=== PATIENT | male | born 1970 | race Caucasian/White ===

== ENCOUNTER 2017-06-15 06:15 | Emergency (ER) | payer SELFPAY ==
[~2017-06-15] VITALS: Ht 175.3 cm; Wt 90.7 kg
[~2017-06-15 06:15] MED LIST: ACHD5005 PO; ASP81CT PO; B/P med; CETI10CA PO; CPR500T PO; DIPH25CA79 PO; EPIN0.3P3 IJ; LISI5TAB PO; METF1000 PO; METF500T PO; MONT10TA21 PO; PRD20T PO
[2017-06-15] MEDS ORDERED: ASPIRIN 81 MG CHEW (CHILDREN'S ASA) PO ONE (06:30)
[2017-06-15] MEDS ORDERED: FAMOTIDINE 20MG/2ML IV (PEPCID) IVP ONE (06:30)
[2017-06-15] MEDS ORDERED: ANTACID SUSP 30 ML UDC (MYLANTA) PO ONE (06:30)
[2017-06-15] MEDS ORDERED: LIDOCAINE 2% VISCOUS 15 ML UDC PO ONE (06:30)
[2017-06-15 06:42] LABS: BASOPHILS # (AUTO) 0.1 10^3/uL (0.0-0.1); BASOPHILS % (AUTO) 1 % (0-10); EOSINOPHILS # (AUTO) 0.8 10^3/uL (0.0-0.3); EOSINOPHILS % (AUTO) 6 % (0-10); LYMPHOCYTES # (AUTO) 3.2 X 10^3 (1.0-4.0); LYMPHOCYTES % (AUTO) 24 % (12-44); MEAN CORPUSCULAR HEMOGLOBIN 29 PG (25-34); MEAN CORPUSCULAR HGB CONC 34 G/DL (32-36); MEAN CORPUSCULAR VOLUME 86 FL (80-99); MEAN PLATELET VOLUME 10.7 FL (7.4-10.4); MONOCYTES % (AUTO) 8 % (0-12); NEUTROPHILS # (AUTO) 7.9 X 10^3 (1.8-7.8); NEUTROPHILS % (AUTO) 61 % (42-75); PLATELET COUNT 197 10^3/uL (130-400); RED CELL DISTRIBUTION WIDTH 12.9 % (10.0-14.5); WHITE BLOOD COUNT 12.9 10^3/uL (4.3-11.0)
--- NOTE | 2017-06-15 06:44 | ED Chest Pain ---
General Chief Complaint: Cardiac/General Problems Stated Complaint: HEARTBURN Nursing Triage Note: AMB TO ED BEFORE GOING TO WORK TO REPORT INDIGESTION SINCE 2300 LAST NIGHT. PT HAS NOT TAKEN ANY MEDICATIONS. "BURNING SENSATION." PT IS DIABETIC. Nursing Sepsis Screen: No Definite Risk Source: patient Exam Limitations: no limitations History of Present Illness Time seen by provider: 06:17 Initial Comments This 46-year-old gentleman presents to the emergency room with complaints of "heartburn" since 23:00. He had a similar pain about 3 weeks ago that lasted for 3 days and seemed refractory to gbqh-kzf-rxicalh treatments for heartburn. The features of his pain are mixed. He reports the pain is sometimes worse with eating or drinking. It also seems worse with exertion and inspiration. He occasionally has some shortness of air with that. He has associated nausea. Pain radiates up to the upper chest and into the left arm. He has cardiac risk factors including diabetes and tobaccoism. He rates the pain as 7/10. Allergies and Home Medications Allergies Coded Allergies: No Known Drug Allergies (Unverified , 11/06/11) Home Medications Cetirizine HCl 10 Mg Capsule, 10 MG PO DAILY, #30 Prescribed by: QAMAR RENDON on 06/26/15 1128 Epinephrine 0.3 Mg/0.3 Ml Auto.injct, 0.3 MG IJ UD PRN for ALLERGIC REACTION, ( Reported) Glipizide 10 Mg Tablet, 10 MG PO BID, (Reported) Metformin HCl 1,000 Mg Tablet, 1,000 MG PO BID for 30 Days May restart on AM after 10:00 AM. Prescribed by: QAMAR RENDON on 06/26/15 1128 Montelukast Sodium 10 Mg Tablet, 10 MG PO DAILY for 30 Days Prescribed by: QAMAR RENDON on 06/26/15 1128 Review of Systems Constitutional: no symptoms reported EENTM: No Symptoms Reported Respiratory: See HPI Cardiovascular: See HPI Gastrointestinal: See HPI Genitourinary: No Symptoms Reported Musculoskeletal: no symptoms reported Skin: no symptoms reported Psychiatric/Neurological: No Symptoms Reported Endocrine: No Symptoms Reported Hematologic/Lymphatic: No Symptoms Reported Past Hehdtwj-Lfytqb-Cphwbv Hx Patient Social History Alcohol Use: Rarely Uses Recreational Drug Use: No Smoking Status: Current Everyday Smoker Type Used: Cigarettes Recent Foreign Travel: No Contact w/Someone Who Travel: No Recent Infectious Disease Expo: No Recent Hopitalizations: No Immunizations Up To Date Date of Pneumonia Vaccine: Sep 07, 2008 Date of Influenza Vaccine: Jun 08, 2011 Seasonal Allergies Seasonal Allergies: No Surgeries History of Surgeries: Yes (hernia repairs X 3) Surgeries: Abdominal Respiratory History of Respiratory Disorde: No Currently Using CPAP: No Currently Using BIPAP: No Cardiovascular History of Cardiac Disorders: Yes (ECHO, STRESS, CATHERIZATION IN 1989) Cardiac Disorders: Deep Vein Thrombosis Neurological History of Neurological Disord: No Reproductive System Hx Reproductive Disorders: No Genitourinary History of Genitourinary Disor: Yes Genitourinary Disorders: Kidney Stones Gastrointestinal History of Gastrointestinal Di: Yes (ING HERNIA REPAIR) Gastrointestinal Disorders: Abdominal Hernia Musculoskeletal History of Musculoskeletal Dis: No Endocrine History of Endocrine Disorders: Yes (DM TYPE II) Endocrine Disorders: Diabetes, Non-Insulin dep HEENT History of HEENT Disorders: No Loss of Vision: Denies Hearing Impairment: Denies Cancer History of Cancer: No Psychosocial History of Psychiatric Problem: No Integumentary History of Skin or Integumenta: Yes (HX Hives, allergic reaction 06/25/15 unsure to what) Blood Transfusions History of Blood Disorders: Yes (REPORTS HEMATOMA TO LEFT LEG WHEN 16 IN AFTER HARD TACKLE IN FOOTBALL) Adverse Reaction to a Blood Tr: No Family Medical History Significant Family History: CAD Under 55 Years Old, Diabetes, Hypertension Family Medial History: Cardiovascular disease 19 MOTHER Diabetes mellitus 19 MOTHER Hypertension 19 MOTHER Physical Exam Vital Signs Vital Sign - Last 12Hours 06/15/17 06:19 Temp 98.3 Pulse 87 Resp 20 B/P (MAP) 157/110 Pulse Ox 97 O2 Delivery Room Air Capillary Refill : Less Than 3 Seconds General Appearance: No Apparent Distress, WD/WN HEENT: PERRL/EOMI, Normal ENT Inspection Neck: Normal Inspection Respiratory: Lungs Clear, Normal Breath Sounds, No Accessory Muscle Use, No Respiratory Distress, Other (anterior chest wall is tender to palpation) Cardiovascular: Regular Rate, Rhythm, No Edema, No Murmur Gastrointestinal: Normal Bowel Sounds, Non Tender, Soft Extremity: Normal Inspection, Non Tender, No Calf Tenderness, No Pedal Edema, Other (negative Lionel) Neurologic/Psychiatric: Alert, Oriented x3, No Motor/Sensory Deficits, Normal Mood/Affect Skin: Normal Color, Warm/Dry Progress/Results/Core Measures Results/Orders Lab Results Laboratory Tests Test 06/15/17 06:30 06/15/17 10:29 Range/Units White Blood Count 12.9 H 4.3-11.0 10^3/uL Red Blood Count 5.50 4.35-5.85 10^6/uL Hemoglobin 16.1 13.3-17.7 G/DL Hematocrit 47 40-54 % Mean Corpuscular Volume 86 80-99 FL Mean Corpuscular Hemoglobin 29 25-34 PG Mean Corpuscular Hemoglobin Concent 34 32-36 G/DL Red Cell Distribution Width 12.9 10.0-14.5 % Platelet Count 197 130-400 10^3/uL Mean Platelet Volume 10.7 H 7.4-10.4 FL Neutrophils (%) (Auto) 61 42-75 % Lymphocytes (%) (Auto) 24 12-44 % Monocytes (%) (Auto) 8 0-12 % Eosinophils (%) (Auto) 6 0-10 % Basophils (%) (Auto) 1 0-10 % Neutrophils # (Auto) 7.9 H 1.8-7.8 X 10^3 Lymphocytes # (Auto) 3.2 1.0-4.0 X 10^3 Monocytes # (Auto) 1.0 0.0-1.0 X 10^3 Eosinophils # (Auto) 0.8 H 0.0-0.3 10^3/uL Basophils # (Auto) 0.1 0.0-0.1 10^3/uL Prothrombin Time 11.2 L 12.2-14.7 SEC INR Comment 0.8 0.8-1.4 Activated Partial Thromboplast Time 25 24-35 SEC D-Dimer 0.34 0.00-0.49 UG/ML Sodium Level 137 135-145 MMOL/L Potassium Level 4.5 3.6-5.0 MMOL/L Chloride Level 109 H 98-107 MMOL/L Carbon Dioxide Level 21 21-32 MMOL/L Anion Gap 7 5-14 MMOL/L Blood Urea Nitrogen 15 7-18 MG/DL Creatinine 0.82 0.60-1.30 MG/DL Estimat Glomerular Filtration Rate > 60 BUN/Creatinine Ratio 18 Glucose Level 133 H 70-105 MG/DL Calcium Level 9.4 8.5-10.1 MG/DL Magnesium Level 1.8 1.8-2.4 MG/DL Total Bilirubin 0.5 0.1-1.0 MG/DL Aspartate Amino Transf (AST/SGOT) 16 5-34 U/L Alanine Aminotransferase (ALT/SGPT) 44 0-55 U/L Alkaline Phosphatase 66 40-136 U/L Myoglobin 30.6 10.0-92.0 NG/ML Troponin I < 0.30 < 0.30 <0.30 NG/ML Total Protein 6.8 6.4-8.2 GM/DL Albumin 4.1 3.2-4.5 GM/DL Lipase 48 8-78 U/L My Orders Orders - COURTNEY PADILLA MD Cbc With Automated Diff (06/15/17 06:27) Magnesium (06/15/17 06:27) Chest 1 View, Ap/Pa Only (06/15/17:27) Ekg Tracing (06/15/17 06:27) Cardiac Profile 1 (06/15/17 06:27) Comprehensive Metabolic Panel (06/15/17 06:27) Myoglobin Serum (06/15/17:27) Protime With Inr (06/15/17 06:27) Partial Thromboplastin Time (06/15/17 06:27) O2 (06/15/17 06:27) Monitor-Rhythm Ecg Trace Only (06/15/17:27) Lipid Panel (06/16/17 06:00) Aspirin Chewable Tablet (Baby Aspirin Ch (06/15/17 06:30) Saline Lock/Iv-Start (06/15/17 06:27) Lipase (06/15/17 06:27) Famotidine Injection (Pepcid Injection) (06/15/17 06:30) Lidocaine 2% Viscous 15 Ml (Xylocaine Vi (06/15/17 06:30) Antacid Suspension (Mylanta Suspension (06/15/17 06:30) Fibrin Degradation Products (06/15/17 06:56) Rx-Nitroglycerin Sl Tabs (Rx-Nitrostat S (06/15/17 07:30) Nitroglycerin 0.4 Mg Btl 25's (Nitrostat (06/15/17 07:17) Nitroglycerin 0.4 Mg Btl 25's (Nitrostat (06/15/17 07:30) Troponin I (06/15/17 08:07) Medications Given in ED Current Medications Medications Dose Ordered Sig/Clary Route Start Time Stop Time Status Last Admin Dose Admin Al Hydrox/Mg Hydrox/Simethicone 30 ml ONCE ONCE PO 06/15/17 06:30 06/15/17 06:31 DC 06/15/17 06:41 30 ML Aspirin 324 mg ONCE ONCE PO 06/15/17 06:30 06/15/17 06:31 DC 06/15/17 06:41 324 MG Famotidine 20 mg ONCE ONCE IVP 06/15/17 06:30 06/15/17 06:31 DC 06/15/17 06:41 20 MG Lidocaine HCl 15 ml ONCE ONCE PO 06/15/17 06:30 06/15/17 06:31 DC 06/15/17 06:41 15 ML Nitroglycerin 1 TAB Q 5 MIN X 3 NEEDED PRN SL 06/15/17 07:30 06/15/17 07:28 0.4 MG Vital Signs/I&O Vital Sign - Last 12Hours 06/15/17 06/15/17 06:19 06:41 Temp 98.3 98.3 Pulse 87 Resp 20 B/P (MAP) 157/110 Pulse Ox 97 O2 Delivery Room Air Blood Pressure Mean: 126 Progress Note #1: Time: 06:55 Progress Note Patient received GI cocktail and Pepcid a few minutes ago. So far has not improved his pain. If it does not change his pain soon, then we'll try nitroglycerin. Patient had a cardiac catheterization in June 2015 with clean coronary arteries. Ejection fraction was 50 percent. Report from this catheterization was reviewed. Patient also confirms that he did have a pulmonary embolus when he was a young man of unknown cause. A d-dimer will be added to his workup. Progress Note #2: Time: 07:40 Progress Note GI cocktail and Pepcid had no effect on his chest pain. Nitroglycerin was then administered and dropped his pain from 8/10 down to 4/10. Workup was unremarkable except for mild leukocytosis. Progress Note #3: Time: 08:09 Progress Note Case reviewed with Dr. Rubio. Given the clean cardiac catheterization 2 years ago, he recommends a 4 hour troponin to rule out. If this is normal, patient may be dismissed to outpatient follow-up. Progress Note #4: Time: 11:05 Progress Note Patient's pain resolved and repeat troponin was negative. ECG Initial ECG Impression Date: Jun 15, 2017 Initial ECG Impression Time: 06:26 Initial ECG Rate: 77 Initial ECG Rhythm: Normal Sinus Initial ECG Intervals: Normal Initial ECG Impression: Normal Comment Normal sinus rhythm with no ST elevation or depression. No abnormal intervals or axis deviation. Diagnostic Imaging Diagonstic Imaging: Xray Plain Films/CT/US/NM/MRI: chest Comments Chest x-ray viewed by me and report reviewed. See report below: NAME: PAT DENISE REC#: [id number] PT STATUS: REG ER : 1970 PHYSICIAN: COURTNEY PADILLA MD ADMIT DATE: 06/15/17/ER Signed Date of Exam:06/15/17 CHEST 1 VIEW, AP/PA ONLY INDICATION: Epigastric pain. Comparison made with prior examination 06/25/2015. FINDINGS: The heart size, mediastinal configuration, and pulmonary vascularity are within normal limits. There is no pleural effusion, pneumothorax, or pneumonia. The osseous structures are unremarkable. IMPRESSION: No acute cardiopulmonary abnormality. Dictated by: Dictated on workstation # [id number] Dict: 06/15/17 07 Trans: 06/15/17715 [facility] [id number] Interpreted by: JANE MCBRIDE MD Electronically signed by: JANE MCBRIDE MD 06/15/17715 Departure Impression Impression: Primary Impression: Atypical chest pain Additional Impression: Gastroesophageal reflux disease Qualified Codes: K21.9 - Gastro-esophageal reflux disease without esophagitis Disposition: 01 HOME, SELF-CARE Condition: Improved Departure-Patient Inst. Decision time for Depature: 11:05 Referrals: NINOSKA CARDENAS DO (PCP/Family) Primary Care Physician Patient Instructions: Chest Pain (DC), Acid Reflux (Gastroesophageal Reflux Disease), Adult (DC) Add. Discharge Instructions: The exact cause of your chest pain is uncertain at this time but it may be related to acid reflux. Please take omeprazole as prescribed to reduce acid. Avoid the following: Eating large meals, eating close to bedtime, carbonation, caffeine, chocolate, tobacco, alcohol, mints, spicy foods, fatty or greasy foods , tomato products, citrus fruits and juices, NSAID medications such as ibuprofen or naproxen, or anything else you know irritates your stomach. 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 All discharge instructions reviewed with patient and/or family. Voiced understanding. Scripts Omeprazole (Omeprazole) 20 Mg Capsule. 20 MG PO BID, #60 CAP Prov: COURTNEY PADILLA MD 06/15/17 COURTNEY PADILLA MD Jun 15, 2017 06:44
[2017-06-15] MEDS ORDERED: GLIP10TA13 PO (06:49)
[2017-06-15 06:55] LABS: INR 0.8 (0.8-1.4); PROTHROMBIN TIME PATIENT 11.2 SEC (12.2-14.7)
[2017-06-15 06:58] LABS: ALANINE AMINOTRANSFERASE 44 U/L (0-55); ALBUMIN 4.1 GM/DL (3.2-4.5); ANION GAP 7 MMOL/L (5-14); ASPARTATE AMINO TRANSFERASE 16 U/L (5-34); BILIRUBIN,TOTAL 0.5 MG/DL (0.1-1.0); BLOOD UREA NITROGEN 15 MG/DL (7-18); BUN/CREATININE RATIO 18; CALCIUM 9.4 MG/DL (8.5-10.1); CARBON DIOXIDE 21 MMOL/L (21-32); CHLORIDE 109 MMOL/L (98-107); CREATININE SERUM 0.82 MG/DL (0.60-1.30); GFR ESTIMATED > 60; GLUCOSE 133 MG/DL (70-105); LIPASE 48 U/L (8-78); MAGNESIUM 1.8 MG/DL (1.8-2.4); POTASSIUM 4.5 MMOL/L (3.6-5.0); SODIUM 137 MMOL/L (135-145); TOTAL PROTEIN 6.8 GM/DL (6.4-8.2)
[2017-06-15 07:04] LABS: MYOGLOBIN SERUM 30.6 NG/ML (10.0-92.0)
--- NOTE | 2017-06-15 07:09 | Diagnostic Imaging Report ---
INDICATION: Epigastric pain. Comparison made with prior examination 06/25/2015. FINDINGS: The heart size, mediastinal configuration, and pulmonary vascularity are within normal limits. There is no pleural effusion, pneumothorax, or pneumonia. The osseous structures are unremarkable. IMPRESSION: No acute cardiopulmonary abnormality. Dictated by: Dictated on workstation # [id number]
[2017-06-15] MEDS ORDERED: NITROGLYCERIN 0.4 MG SL TABS BTL 25'S SL ONE (07:17)
[2017-06-15] MEDS ORDERED: RX-NITROGLYCERIN 0.4 MG TAB BTL 25'S SL PRN (07:30)
[2017-06-15] MEDS ORDERED: NITROGLYCERIN 0.4 MG SL TABS BTL 25'S SL PRN (07:30)
[2017-06-15] MEDS ORDERED: OMEP20CA12 PO (11:15)
[2017-06-15 11:23] VITALS: BP 157/110
== END 2017-06-15 11:23 | disposition home or self-care (01) ==
LOC: EDUNIT# 06:15 → ER 06:17
DX: K21.9 Gastro-esophageal reflux disease without esophagitis (principal); E11.9 Type 2 diabetes mellitus without complications; F17.210 Nicotine dependence, cigarettes, uncomplicated; Z79.84 Long term (current) use of oral hypoglycemic drugs; Z86.718 Personal history of other venous thrombosis and embolism; Z82.49 Family history of ischemic heart disease and other diseases of the circulatory system; Z87.19 Personal history of other diseases of the digestive system; Z87.442 Personal history of urinary calculi
CPT/HCPCS: 36415; 71010; 80053; 83690; 83735; 83874; 84484; 85025; 85379; 85610; 85730; 93005; 93041; 96374

== ENCOUNTER 2021-09-23 08:45 | Outpatient (CLI) | payer SELFPAY ==
[~2021-09-23] VITALS: Ht 69 cm; Wt 87.7 kg
[~2021-09-23 08:45] MED LIST changes: +GLIP10TA13 PO; +METF-399 PO; -METF1000 PO; +OMEP20CA18 PO
[2021-09-23 09:04] VITALS: BP 158/98
[2021-09-23] MEDS ORDERED: diphenhydrAMINE 50 MG/ML INJ (BENADRYL) IV PRN (09:15)
[2021-09-23] MEDS ORDERED: EPINEPHrine INJECTION 1 MG/ML AMP IM PRN (09:15)
[2021-09-23] MEDS ORDERED: ACETAMINOPHEN 500 MG TAB (TYLENOL) PO PRN (09:15)
[2021-09-23] MEDS ORDERED: ONDANSETRON 4 MG/2 ML (SDV) Z0FRAN IV PRN (09:15)
[2021-09-23] MEDS ORDERED: CASIRIVIMAB/IMDEVIMAB 1,200 MG in NS (IVPB) 50 ML IV ONE (09:15)
[2021-09-23] MEDS ORDERED: CASIRIVIMAB/IMDEVIMAB 1,200 MG in NS (IVPB) 250 ML IV ONE (09:30)
[2021-09-23 09:49] VITALS: BP 158/98
[2021-09-23 09:51] VITALS: BP 158/98
[2021-09-23 10:57] VITALS: BP 137/78
== END 2021-09-23 10:53 ==
LOC: INFUSION 08:45
PROVIDERS: ATTEND Nurse Practitioner Family
DX: U07.1 COVID-19 (principal)

== ENCOUNTER 2022-02-04 00:44 | Emergency (ER) | payer SELFPAY ==
[2022-02-04 01:00] LABS: BASOPHILS % (AUTO) 0 % (0-10); EOSINOPHILS # (AUTO) 0.3 10^3/uL (0.0-0.3); EOSINOPHILS % (AUTO) 2 % (0-10); HEMATOCRIT 49 % (40-54); HEMOGLOBIN 17.2 g/dL (13.3-17.7); LYMPHOCYTES # (AUTO) 3.4 10^3/uL (1.0-4.0); LYMPHOCYTES % (AUTO) 22 % (12-44); MEAN CORPUSCULAR HEMOGLOBIN 30 pg (25-34); MEAN CORPUSCULAR HGB CONC 35 g/dL (32-36); MEAN CORPUSCULAR VOLUME 86 fL (80-99); MEAN PLATELET VOLUME 11.1 fL (9.0-12.2); MONOCYTES # (AUTO) 0.7 10^3/uL (0.0-1.0); MONOCYTES % (AUTO) 5 % (0-12); NEUTROPHILS # (AUTO) 10.9 10^3/uL (1.8-7.8); NEUTROPHILS % (AUTO) 71 % (42-75); PLATELET COUNT 233 10^3/uL (130-400); WHITE BLOOD COUNT 15.3 10^3/uL (4.3-11.0)
[2022-02-04] MEDS ORDERED: LORATADINE (CLARITIN) 10 MG TAB PO ONE (01:00)
[2022-02-04] MEDS ORDERED: methylPREDNISolone 125 MG (Solu-MEDROL) VIAL IVP ONE (01:00)
[2022-02-04] MEDS ORDERED: diphenhydrAMINE 50 MG/ML INJ (BENADRYL) IVP ONE (01:00)
[2022-02-04] MEDS ORDERED: NS IV 1000 ML 1,000 ML IV SCH (01:00)
--- NOTE | 2022-02-04 01:01 | ED Integumentary General ---
General Chief Complaint: Allergic Reaction Stated Complaint: ALLERGIC RXN Source: patient, EMS Exam Limitations: no limitations History of Present Illness Date Seen by Provider: February 04, 2022 Time Seen by Provider: 00:45 Initial Comments Patient to the ER by EMS from [facility] with chief complaint that last night he started having hives. Has had hives for many years. 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 He has had marked [place] spotted fever. He did take his EpiPen tonight although he was not having any severe shortness of air, tongue swelling or difficulty swallowing or speech changes. Does not have any nausea chest pain or weakness. He took 50 mg of Benadryl about 3 hours ago and his epi was 2 hours ago. He does not take second-generation antihistamines. He follows with Ubaldo Bansal for primary care. He is not on any antibiotics. He does have diabetes on metformin and a sulfonylurea. He has not been on steroids recently. He says in the past he had hives so bad that he actually had kidney failure and had to spend 3 days in the hospital. Allergies and Home Medications Allergies Coded Allergies: No Known Drug Allergies (Unverified , 11/06/11) Patient Home Medication List Home Medication List Reviewed: Yes Cetirizine HCl (Zyrtec) 10 Mg Capsule, 10 MG PO DAILY Prescribed by: QAMAR RENDON on 06/26/15 1128 Epinephrine (Epipen 2-Yossi) 0.3 Mg/0.3 Ml Auto.injct, 0.3 MG IJ UD PRN for ALLERGIC REACTION, (Reported) Entered as Reported by: LUBNA RESTREPO on 06/25/15 1300 Epinephrine (Epipen 2-Yossi) 0.3 Mg/0.3 Ml Auto.injct, 0.3 MG IJ Q15M PRN for anaphylaxis Prescribed by: MARIA A CRUZ on 02/04/22 0257 Glipizide (Glipizide) 10 Mg Tablet, 10 MG PO BID, (Reported) Entered as Reported by: SONU ARGUETA on 06/15/17 0649 Metformin HCl (Metformin HCl) 1,000 Mg Tablet, 1,000 MG PO BID Prescribed by: QAMAR RENDON on 06/26/15 1128 Methylprednisolone (Methylprednisolone Dose Pack) 4 Mg Tab.ds.pk, 4 MG PO UD Prescribed by: MARIA A CRUZ on 02/04/22 0257 Montelukast Sodium (Singulair) 10 Mg Tablet, 10 MG PO DAILY Prescribed by: QAMAR RENDON on 06/26/15 1128 Omeprazole (Omeprazole) 20 Mg Capsule.dr, 20 MG PO BID Prescribed by: COURTNEY RODRÍGUEZ on 06/15/17 1115 Review of Systems Review of Systems Constitutional: No chills, No diaphoresis EENTM: No ear discharge, No hearing loss, No ear pain Respiratory: No cough, No short of breath Cardiovascular: No chest pain, No edema Gastrointestinal: No abdominal pain, No nausea, No vomiting Genitourinary: No discharge, No dysuria Musculoskeletal: No back pain, No joint pain Skin: see HPI, change in color, rash All Other Systems Reviewed Negative Unless Noted: Yes Past Ilsujun-Wdwjwn-Ophvtg Hx Patient Social History Tobacco Use?: Yes Tobacco type used: Cigarettes Smoking Status: Current Everyday Smoker (2 cigarettes/day) Use of E-Cig and/or Vaping dev: No Seasonal Allergies Seasonal Allergies: No Past Medical History Surgeries: Yes (hernia repairs X 3) Abdominal Respiratory: No Currently Using CPAP: No Currently Using BIPAP: No Cardiac: Yes (ECHO, STRESS, CATHERIZATION IN 1989) Deep Vein Thrombosis Neurological: No Reproductive Disorders: No Genitourinary: Yes Kidney Stones Gastrointestinal: Yes (ING HERNIA REPAIR) Abdominal Hernia Musculoskeletal: No Endocrine: Yes (DM TYPE II) Diabetes, Non-Insulin dep HEENT: No Loss of Vision: Denies Hearing Impairment: Denies Cancer: No Psychosocial: No Integumentary: Yes (HX Hives, allergic reaction 06/25/15 unsure to what) Blood Disorders: Yes (REPORTS HEMATOMA TO LEFT LEG WHEN 14 IN AFTER HARD TACKLE IN FOOTBALL) Adverse Reaction/Blood Tranf: No Family Medical History Cardiovascular disease 19 MOTHER Diabetes mellitus 19 MOTHER Hypertension 19 MOTHER CAD Under 55 Years Old, Diabetes, Hypertension Physical Exam Vital Signs Vital Signs - First Documented 02/04/22 00:58 Temp 37.0 Pulse 117 Resp 20 B/P (MAP) 188/107 (134) Capillary Refill : General Appearance: WD/WN, no apparent distress HEENT: PERRL/EOMI, pharynx normal Neck: full range of motion, supple, normal inspection Cardiovascular: normal peripheral pulses, regular rate, rhythm, tachycardia (115) Respiratory: lungs clear, normal breath sounds, no respiratory distress (96 to 97% on room air.), no accessory muscle use Gastrointestinal: non tender, soft Neurologic/Psychiatric: alert, normal mood/affect, oriented x 3 Skin: normal color, warm/dry Skin Problem Location: generalized Skin Problem Character: erythema, rash, urticarial Progress/Results/Core Measures Results/Orders Lab Results Laboratory Tests Test 02/04/22 00:50 02/04/22 02:48 Range/Units White Blood Count 15.3 H 4.3-11.0 10^3/uL Red Blood Count 5.65 H 4.30-5.52 10^6/uL Hemoglobin 17.2 13.3-17.7 g/dL Hematocrit 49 40-54 % Mean Corpuscular Volume 86 80-99 fL Mean Corpuscular Hemoglobin 30 25-34 pg Mean Corpuscular Hemoglobin Concent 35 32-36 g/dL Red Cell Distribution Width 12.2 10.0-14.5 % Platelet Count 233 130-400 10^3/uL Mean Platelet Volume 11.1 9.0-12.2 fL Immature Granulocyte % (Auto) 0 % Neutrophils (%) (Auto) 71 42-75 % Lymphocytes (%) (Auto) 22 12-44 % Monocytes (%) (Auto) 5 0-12 % Eosinophils (%) (Auto) 2 0-10 % Basophils (%) (Auto) 0 0-10 % Neutrophils # (Auto) 10.9 H 1.8-7.8 10^3/uL Lymphocytes # (Auto) 3.4 1.0-4.0 10^3/uL Monocytes # (Auto) 0.7 0.0-1.0 10^3/uL Eosinophils # (Auto) 0.3 0.0-0.3 10^3/uL Basophils # (Auto) 0.0 0.0-0.1 10^3/uL Immature Granulocyte # (Auto) 0.1 0.0-0.1 10^3/uL Neutrophils % (Manual) 80 % Lymphocytes % (Manual) 12 % Monocytes % (Manual) 3 % Eosinophils % (Manual) 2 % Band Neutrophils 3 % Blood Morphology Comment NORMAL Sodium Level 139 135-145 MMOL/L Potassium Level 3.9 3.6-5.0 MMOL/L Chloride Level 101 98-107 MMOL/L Carbon Dioxide Level 17 L 21-32 MMOL/L Anion Gap 21 H 5-14 MMOL/L Blood Urea Nitrogen 22 H 7-18 MG/DL Creatinine 1.50 H 0.60-1.30 MG/DL Estimat Glomerular Filtration Rate 55 BUN/Creatinine Ratio 15 Glucose Level 412 *H 70-105 MG/DL Calcium Level 9.5 8.5-10.1 MG/DL Corrected Calcium 9.3 8.5-10.1 MG/DL Total Bilirubin 0.5 0.1-1.0 MG/DL Aspartate Amino Transf (AST/SGOT) 39 H 5-34 U/L Alanine Aminotransferase (ALT/SGPT) 71 H 0-55 U/L Alkaline Phosphatase 68 40-136 U/L Total Protein 7.8 6.4-8.2 GM/DL Albumin 4.2 3.2-4.5 GM/DL Glucometer 378 H 70-110 MG/DL My Orders Orders - MARIA A CRUZ Ed Iv/Invasive Line Start (02/04/22 00:54) Ns Iv 1000 Ml (Sodium Chloride 0.9%) (02/04/22 01:00) Methylprednisolone Sod Succ (Solu-Medrol (02/04/22 01:00) Diphenhydramine Injection (Benadryl Inje (02/04/22 01:00) Loratadine Tablet (Claritin Tablet) (02/04/22 01:00) Cbc With Automated Diff (02/04/22 00:54) Comprehensive Metabolic Panel (02/04/22 00:54) Manual Differential (02/04/22 00:50) Insulin (Regular) Human (Novolin R (Per (02/04/22 01:45) Accucheck Stat ONCE (02/04/22 02:39) Medications Given in ED Vital Signs/I&O 02/04/22 02/04/22 00:58 03:20 Temp 37.0 37.0 Pulse 117 90 Resp 20 20 B/P (MAP) 188/107 (134) 162/93 Progress Progress Note #1: Time: 00:59 Progress Note 25 mg IV Benadryl, 125 mg of Solu-Medrol. He is not an anaphylaxis so he did not need epinephrine but we will give him a little fluids through his IV and check some basic labs to make sure his kidney function is good. Progress Note #2: Time: 02:54 Progress Note Hives look resolved. He is not having any signs of anaphylaxis. He is breathing well vital signs are normal. His blood sugars coming down to 378 with the insulin. We will let him go home with some steroids and instructions to use antihistamines. Departure Impression Primary Impression: Urticaria Additional Impression: Hyperglycemia Disposition: 01 HOME, SELF-CARE Condition: Stable Departure-Patient Inst. Decision time for Depature: 02:55 Referrals: NINOSKA CARDENAS DO (PCP/Family) Primary Care Physician Patient Instructions: High Blood Sugar, Adult ED, Hives (DC) Add. Discharge Instructions: Take a steroid Dosepak as prescribed to help resolve the hives. If your sugars stay very high you can cut the dose in half. Claritin or Zyrtec 10 mg once or twice a day for itching and hives. Benadryl 1 to 2 tablets every 6 hours as needed for breakthrough itching and hives. Promptly return to the ER for difficulty breathing, swelling in your tongue or throat or other worrisome symptoms. All discharge instructions reviewed with patient and/or family. Voiced understanding. Scripts Methylprednisolone (Methylprednisolone Dose Pack) 4 Mg Tab.ds.pk 4 MG PO UD for 6 Days, #21 PKG 0 Refills PER DOSE PACK INSTRUCTIONS Prov: MARIA A CRUZ 02/04/22 Epinephrine (Epipen 2-Yossi) 0.3 Mg/0.3 Ml Auto.injct 0.3 MG IJ Q15M PRN for anaphylaxis, #1 EA 0 Refills Prov: MARIA A CRUZ 02/04/22 Work/School Note: Work Release Form Date Seen in the Emergency Department: February 04, 2022 Return to Work: Feb 05, 2022 Restrictions: No Restrictions MARIA A CRUZ February 04, 2022 01:00
[2022-02-04 01:07] LABS: ALBUMIN 4.2 GM/DL (3.2-4.5); POTASSIUM 3.9 MMOL/L (3.6-5.0)
[2022-02-04 01:08] LABS: CALCIUM 9.5 MG/DL (8.5-10.1)
[2022-02-04 01:09] LABS: TOTAL PROTEIN 7.8 GM/DL (6.4-8.2)
[2022-02-04 01:11] LABS: BILIRUBIN,TOTAL 0.5 MG/DL (0.1-1.0)
[2022-02-04 01:13] LABS: CREATININE SERUM 1.5 MG/DL (0.60-1.30)
[2022-02-04 01:30] LABS: BAND NEUTROPHILS 3 %; EOSINOPHILS % (MANUAL) 2 %; LYMPHOCYTES % (MANUAL) 12 %; MONOCYTES % (MANUAL) 3 %; NEUTROPHILS % (MANUAL) 80 %; RBC MORPH NORMAL
[2022-02-04] MEDS ORDERED: inSUlin (REGULAR) HUMAN 1 UNIT/0.01 ML (CHARGE PER UNIT) SC ONE (01:45)
[2022-02-04] MEDS ORDERED: EPIN0.3P3 IJ (02:57)
[2022-02-04] MEDS ORDERED: METH4TAB10 PO (02:57)
[2022-02-04 03:20] VITALS: BP 162/93
== END 2022-02-04 03:30 | disposition home or self-care (01) ==
LOC: EDUNIT# 00:44 → ER 00:46
DX: L50.9 Urticaria, unspecified (principal); E11.65 Type 2 diabetes mellitus with hyperglycemia; F17.210 Nicotine dependence, cigarettes, uncomplicated; Z79.84 Long term (current) use of oral hypoglycemic drugs
CPT/HCPCS: 36415; 80053; 82947; 85007; 85027

== ENCOUNTER 2022-07-12 13:36 | Emergency (ER) | payer OTHER ==
[~2022-07-12 13:36] MED LIST changes: +METH4TAB10 PO
[2022-07-12] MEDS ORDERED: morphine INJ 10 MG/ML 1ML (SYR OR VIAL) IVP STA (14:29)
[2022-07-12] MEDS ORDERED: PANTOPRAZOLE 40 MG (PROTONIX) VIAL IV ONE (14:30)
[2022-07-12] MEDS ORDERED: ONDANSETRON 4 MG/2 ML (SDV) Z0FRAN IVP ONE (14:30)
--- NOTE | 2022-07-12 14:34 | ED GI ---
General Chief Complaint: Abdominal/GI Problems Stated Complaint: HEARTBURN/UPPER ABD PAIN Nursing Triage Note: PT AMB TO RM 7 WITH C/O FLU LIKE SYMPTOMS, ABD PAIN, AND HEART BURN THAT MONTOYA IN HIS STERNUM TO HIS BACK. PT SEEN AT [facility] WALK IN PRIOR TO ARRIVAL Source of Information: Patient Exam Limitations: No Limitations History of Present Illness Date Seen by Provider: Jul 12, 2022 Time Seen by Provider: 14:20 Initial Comments Patient is a 51-year-old male with a history of Ogema spotted fever 4 years ago and residual arthritic aches and pains also history of diabetes who presents to the emergency room with a chief complaint of severe heartburn. Patient points to the epigastrium and states that the pain radiates up into his chest, down into his abdomen and into his back. Onset approximately 1 week ago and worsening. He states he has had fever T-max of 101 at home last night. He also had nausea and vomiting last night. He states this heartburn feels "different" than prior. He has been chewing lots of Tums which have not helped. He presented to the [facility] walk-in clinic today, had an EKG and was sent to the emergency department for further evaluation. He does smoke cigarettes, he s tates for a day. He has a history of hypertension but states that when his primary care provider started him on antihypertensives his blood pressure dropped too low. He denies vomiting blood, black or bloody stool. No urinary complaints. He does have abdominal pain. No swelling in his legs or cramping in his calves. He does have some body aches Currently rates his pain at a "9". Nothing makes his pain any better or any worse. Timing/Duration: 1 Week Severity/Quality: Severe ("9"), Burning Location: Epigastric Radiation: Back, Chest Activities at Onset: None Associated Symptoms: Back Pain, Fever/Chills, Heartburn, Nausea/Vomiting Allergies and Home Medications Allergies Coded Allergies: No Known Drug Allergies (Unverified , 07/12/22) Patient Home Medication List Home Medication List Reviewed: Yes Cetirizine HCl (Zyrtec) 10 Mg Capsule, 10 MG PO DAILY Prescribed by: QAMAR RENDON on 06/26/15 1128 Epinephrine (Epipen 2-Yossi) 0.3 Mg/0.3 Ml Auto.injct, 0.3 MG IJ UD PRN for ALLERGIC REACTION, (Reported) Entered as Reported by: LUBNA RESTREPO on 06/25/15 1300 Epinephrine (Epipen 2-Yossi) 0.3 Mg/0.3 Ml Auto.injct, 0.3 MG IJ Q15M PRN for anaphylaxis Prescribed by: MARIAA CRUZ on 02/04/22 0257 Glipizide (Glipizide) 10 Mg Tablet, 10 MG PO BID, (Reported) Entered as Reported by: SONU ARGUETA on 06/15/17 0649 Metformin HCl (Metformin HCl) 1,000 Mg Tablet, 1,000 MG PO BID Prescribed by: QAMAR RENDON on 06/26/15 1128 Methylprednisolone (Methylprednisolone Dose Pack) 4 Mg Tab.ds.pk, 4 MG PO UD Prescribed by: MARIA A CRUZ on 02/04/22256 Montelukast Sodium (Singulair) 10 Mg Tablet, 10 MG PO DAILY Prescribed by: QAMAR RENDON on 06/26/15 1128 Omeprazole (Omeprazole) 20 Mg Capsule.dr, 20 MG PO BID Prescribed by: COURTNEY RODRÍGUEZ on 06/15/17 1115 Review of Systems Review of Systems Constitutional: see HPI, fever EENTM: No Symptoms Reported Respiratory: Cough (occ) Cardiovascular: Chest Pain Gastrointestinal: Abdominal Pain, Nausea, Vomiting Genitourinary: No Symptoms Reported Musculoskeletal: no symptoms reported Skin: other (sweating "ever since I had RMSF 4 yr ago") Psychiatric/Neurological: No Symptoms Reported Endocrine: Excessive Sweating Past [id number]-[id number] Hx Patient Social History Tobacco Use?: Yes Tobacco type used: Cigarettes Substance use?: No Alcohol Use?: No Pt feels they are or have been: No Immunizations Up To Date Influenza Vaccine Up-to-Date: No; Not Current First/Initial COVID19 Vaccinat: 2020 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: [place] Seasonal Allergies Seasonal Allergies: No Past Medical History Surgery/Hospitalization HX: DM, GRADY MTN SPOTTED FEVER, DM, ARTHRITIS HERNIA Surgeries: Yes (hernia repairs X 3) Abdominal Respiratory: No Currently Using CPAP: No Currently Using BIPAP: No Cardiac: Yes (ECHO, STRESS, CATHERIZATION IN 1989) Deep Vein Thrombosis Neurological: No Reproductive Disorders: No Genitourinary: Yes Kidney Stones Gastrointestinal: Yes (ING HERNIA REPAIR) Abdominal Hernia Musculoskeletal: No Endocrine: Yes (DM TYPE II) Diabetes, Non-Insulin dep HEENT: No Loss of Vision: Denies Hearing Impairment: Denies Cancer: No Psychosocial: No Integumentary: Yes (HX Hives, allergic reaction 06/25/15 unsure to what) Blood Disorders: Yes (REPORTS HEMATOMA TO LEFT LEG WHEN 16 IN AFTER HARD TACKLE IN FOOTBALL) Adverse Reaction/Blood Tranf: No Family Medical History Cardiovascular disease 19 MOTHER Diabetes mellitus 19 MOTHER Hypertension 19 MOTHER CAD Under 55 Years Old, Diabetes, Hypertension Physical Exam Vital Signs Vital Signs - First Documented 07/12/22 13:44 Temp 36.7 Pulse 90 Resp 17 B/P (MAP) 169/106 (127) Capillary Refill : Less Than 3 Seconds Height/Weight/BMI Height: 5'9.00" Weight: 200lbs. 9.0oz. 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, no motor/sensory deficits, alert, normal mood/affect, oriented x 3 Skin: diaphoresis, pallor ("off color" almost a grayish/yellowish color to skin) Progress/Results/Core Measures Results/Orders Lab Results Laboratory Tests Test 07/12/22 14:05 Range/Units White Blood Count 14.0 H 4.3-11.0 10^3/uL Red Blood Count 5.60 H 4.30-5.52 10^6/uL Hemoglobin 16.6 13.3-17.7 g/dL Hematocrit 48 40-54 % Mean Corpuscular Volume 86 80-99 fL Mean Corpuscular Hemoglobin 30 25-34 pg Mean Corpuscular Hemoglobin Concent 35 32-36 g/dL Red Cell Distribution Width 12.2 10.0-14.5 % Platelet Count 223 130-400 10^3/uL Mean Platelet Volume 10.8 9.0-12.2 fL Immature Granulocyte % (Auto) 0 % Neutrophils (%) (Auto) 71 42-75 % Lymphocytes (%) (Auto) 20 12-44 % Monocytes (%) (Auto) 5 0-12 % Eosinophils (%) (Auto) 3 0-10 % Basophils (%) (Auto) 1 0-10 % Neutrophils # (Auto) 10.0 H 1.8-7.8 10^3/uL Lymphocytes # (Auto) 2.8 1.0-4.0 10^3/uL Monocytes # (Auto) 0.7 0.0-1.0 10^3/uL Eosinophils # (Auto) 0.4 H 0.0-0.3 10^3/uL Basophils # (Auto) 0.1 0.0-0.1 10^3/uL Immature Granulocyte # (Auto) 0.1 0.0-0.1 10^3/uL Sodium Level 134 L 135-145 MMOL/L Potassium Level 4.0 3.6-5.0 MMOL/L Chloride Level 100 98-107 MMOL/L Carbon Dioxide Level 23 21-32 MMOL/L Anion Gap 11 5-14 MMOL/L Blood Urea Nitrogen 14 7-18 MG/DL Creatinine 0.92 0.60-1.30 MG/DL Estimat Glomerular Filtration Rate 99 BUN/Creatinine Ratio 15 Glucose Level 286 H 70-105 MG/DL Calcium Level 9.4 8.5-10.1 MG/DL Corrected Calcium 9.3 8.5-10.1 MG/DL Total Bilirubin 1.6 H 0.1-1.0 MG/DL Aspartate Amino Transf (AST/SGOT) 20 5-34 U/L Alanine Aminotransferase (ALT/SGPT) 49 0-55 U/L Alkaline Phosphatase 64 40-136 U/L Total Protein 6.5 6.4-8.2 GM/DL Albumin 4.1 3.2-4.5 GM/DL Lipase 41 8-78 U/L My Orders Orders - ELPIDIO MCFADDEN MD Ed Iv/Invasive Line Start (07/12/22 14:29) Cbc With Automated Diff (07/12/22 14:29) Comprehensive Metabolic Panel (07/12/22 14:29) Lipase (07/12/22 14:29) Ekg Tracing (07/12/22 14:29) Morphine Injection (Morphine Injection (07/12/22 14:29) Ondansetron Injection (Zofran Injectio (07/12/22 14:30) Pantoprazole Injection (Protonix Injecti (07/12/22 14:30) Ct Abdomen/Pelvis W (07/12/22 15:05) Iohexol Injection (Omnipaque 350 Mg/Ml 1 (07/12/22 15:15) Received Contrast (Hold Metformin- Contr (07/12/22 15:15) Ns (Ivpb) (Sodium Chloride 0.9% Ivpb Bag (07/12/22 15:15) Medications Given in ED Current Medications Medications Dose Ordered Sig/Clary Route Start Time Stop Time Status Last Admin Dose Admin Iohexol 100 ml ONCE ONCE IV 07/12/22 15:15 07/12/22 15:16 DC 07/12/22 15:18 80 ML Ondansetron HCl 8 mg ONCE ONCE IVP 07/12/22 14:30 07/12/22 14:31 DC 07/12/22 14:42 8 MG Pantoprazole 40 mg ONCE ONCE IV 07/12/22 14:30 07/12/22 14:31 DC 07/12/22 14:42 40 MG Sodium Chloride 100 ml ONCE ONCE IV 07/12/22 15:15 07/12/22 15:16 DC 07/12/22 15:19 80 ML Vital Signs/I&O 07/12/22 13:44 Temp 36.7 Pulse 90 Resp 17 B/P (MAP) 169/106 (127) Blood Pressure Mean: 127 Progress Progress Note : Time: 16:04 Progress Note Patient evaluated today with heartburn, abdominal pain, fever and vomiting. Evaluation includes physical exam, CBC, Chem-12, lipase COVID test. He is treated with Protonix, fluids, nausea medicine. He feels better after these medications. Still has a mild amount of burning. CT abdomen and pelvis with IV contrast is unremarkable for any acute pathology. He does have slightly elevated leukocytosis. Very minimally elevated liver functions. Fatty liver noted on CT. Abdomen reexamined, soft not as much guarding. Suspect viral GI bug. We will support the symptoms over the next 24 to 48 hours. Advised the patient to return to the emergency room if his symptoms are persisting or w orsening over that time. Recommend follow-up with his primary care physician. We will give him a little GI cocktail prior to discharge. He is comfortable with this plan of care. All questions are sought and answered. Initial ECG Impression Date: Jul 12, 2022 Initial ECG Impression Time: 14:47 Initial ECG Rate: 89 Initial ECG Rhythm: Normal Sinus Initial ECG Intervals: Normal Initial ECG Impression: Nonspecific Changes Comment Nonspecific ST-T wave changes inferiorly, no ST segment depression or elevation. No ectopy. Diagnostic Imaging Diagonstic Imaging: CT Comments [facility] [place], [place] NAME: PAT DENISE [facility] REC#: [id number] PT STATUS: REG ER : 1970 PHYSICIAN: ELPIDIO MCFADDEN MD ADMIT DATE: 07/12/22/ER Signed Date of Exam:07/12/22 CT ABDOMEN/PELVIS W EXAMINATION: CT abdomen and pelvis with intravenous contrast. TECHNIQUE: Multiple contiguous axial images were obtained through the abdomen and pelvis after the uneventful administration of intravenous contrast. All CT scans use one or more of the following dose optimizing techniques: automated exposure control, MA and/or KvP adjustment based on patient size and exam type or iterative reconstruction. HISTORY: Fever, vomiting and abdominal pain. COMPARISON: None available. FINDINGS: Limited views of the lower thorax are unremarkable. Liver is steatotic. No focal liver lesions are seen. There is no biliary ductal dilation. Gallbladder is normal. Pancreas is normal. Spleen is normal. Adrenal glands are normal. The kidneys are normal. There is no hydronephrosis. Urinary bladder is normal. Bowel is normal in caliber without obstruction or inflammation. No free fluid or air. No abdominal or pelvic lymphadenopathy. Aorta is normal in caliber without aneurysm. There are no suspicious osseus lesions. IMPRESSION: Steatotic liver, otherwise no acute abnormality. Dictated by: Dictated on workstation # [id number] Dict: 07/12/22 1525 Trans: 07/12/22 1535 PJ [id number] Interpreted by: RANDALL JIMENEZ MD Electronically signed by: RANDALL JIMENEZ MD 07/12/22 1535 Departure Impression Primary Impression: Abdominal pain Qualified Codes: R10.13 - Epigastric pain Additional Impression: Gastritis Qualified Codes: K29.00 - Acute gastritis without bleeding Disposition: HOME, SELF-CARE Condition: Improved Departure-Patient Inst. Decision time for Depature: 16:07 Ref[place]: [facility] [place] Primary Care Physician Patient Instructions: Gastritis (DC) Add. Discharge Instructions: Start taking the omeprazole which is an acid transformation manager daily. Take this at night before bed. Nausea medication, ondansetron 4 mg tablets every 6-8 hours as needed for upset stomach. Follow a clear liquid diet over the next 12 hours or so then slowly advance your diet as tolerated. If you continue to have a fever, pain, vomiting over the next 24 hours please come back to the emergency department for reevaluation. Follow-up with your primary care doctor for further testing and as needed. Scripts Ondansetron (Ondansetron Odt) 4 Mg Tab.rapdis 4 MG SL Q8H PRN for NAUSEA/VOMITING, #15 TAB Prov: ELPIDIO MCFADDEN MD 07/12/22 Omeprazole (Omeprazole) 20 Mg Tablet. 20 MG PO DAILY, #30 TAB Prov: ELPIDIO MCFADDEN MD 07/12/22 Copy Copies To 1: NINOSKA CARDENAS KATHRYN M MD Jul 12, 2022 14:34
[2022-07-12 14:36] LABS: BASOPHILS # (AUTO) 0.1 10^3/uL (0.0-0.1); BASOPHILS % (AUTO) 1 % (0-10); EOSINOPHILS # (AUTO) 0.4 10^3/uL (0.0-0.3); EOSINOPHILS % (AUTO) 3 % (0-10); HEMATOCRIT 48 % (40-54); HEMOGLOBIN 16.6 g/dL (13.3-17.7); LYMPHOCYTES # (AUTO) 2.8 10^3/uL (1.0-4.0); LYMPHOCYTES % (AUTO) 20 % (12-44); MEAN CORPUSCULAR HEMOGLOBIN 30 pg (25-34); MEAN CORPUSCULAR HGB CONC 35 g/dL (32-36); MEAN CORPUSCULAR VOLUME 86 fL (80-99); MEAN PLATELET VOLUME 10.8 fL (9.0-12.2); MONOCYTES # (AUTO) 0.7 10^3/uL (0.0-1.0); MONOCYTES % (AUTO) 5 % (0-12); NEUTROPHILS % (AUTO) 71 % (42-75); PLATELET COUNT 223 10^3/uL (130-400)
[2022-07-12 14:40] LABS: ALBUMIN 4.1 GM/DL (3.2-4.5)
[2022-07-12 14:41] LABS: CALCIUM 9.4 MG/DL (8.5-10.1)
[2022-07-12 14:43] LABS: TOTAL PROTEIN 6.5 GM/DL (6.4-8.2)
[2022-07-12 14:44] LABS: BILIRUBIN,TOTAL 1.6 MG/DL (0.1-1.0)
[2022-07-12 14:46] LABS: CREATININE SERUM 0.92 MG/DL (0.60-1.30)
[2022-07-12] MEDS ORDERED: IOHEXOL 350 MG/ML 100 ML (OMNIPAQUE 350) VIAL IV ONE (15:15)
[2022-07-12] MEDS ORDERED: HOLD METFORMIN - RECEIVED CONTRAST 20 ML VIAL IV SCH (15:15)
[2022-07-12] MEDS ORDERED: NS 100 ML (IVPB) BAG IV ONE (15:15)
--- NOTE | 2022-07-12 15:31 | Diagnostic Imaging Report ---
EXAMINATION: CT abdomen and pelvis with intravenous contrast. TECHNIQUE: Multiple contiguous axial images were obtained through the abdomen and pelvis after the uneventful administration of intravenous contrast. All CT scans use one or more of the following dose optimizing techniques: automated exposure control, MA and/or KvP adjustment based on patient size and exam type or iterative reconstruction. HISTORY: Fever, vomiting and abdominal pain. COMPARISON: None available. FINDINGS: Limited views of the lower thorax are unremarkable. Liver is steatotic. No focal liver lesions are seen. There is no biliary ductal dilation. Gallbladder is normal. Pancreas is normal. Spleen is normal. Adrenal glands are normal. The kidneys are normal. There is no hydronephrosis. Urinary bladder is normal. Bowel is normal in caliber without obstruction or inflammation. No free fluid or air. No abdominal or pelvic lymphadenopathy. Aorta is normal in caliber without aneurysm. There are no suspicious osseus lesions. IMPRESSION: Steatotic liver, otherwise no acute abnormality. Dictated by: Dictated on workstation # [id number]
[2022-07-12] MEDS ORDERED: ONDA4TAB11 SL (16:09)
[2022-07-12] MEDS ORDERED: OMEP20TA56 PO (16:09)
[2022-07-12] MEDS ORDERED: LIDOCAINE 2% VISCOUS 15 ML UDC PO ONE (16:15)
[2022-07-12] MEDS ORDERED: ANTACID SUSP 30 ML UDC (MYLANTA) PO ONE (16:15)
[2022-07-12] MEDS ORDERED: SUCRALFATE 1 GM (CARAFATE) TAB PO ONE (16:15)
[2022-07-12 16:24] VITALS: BP 167/108
== END 2022-07-12 16:25 | disposition home or self-care (01) ==
LOC: EDUNIT# 13:36 → ER 13:39
DX: K29.70 Gastritis, unspecified, without bleeding (principal); K76.0 Fatty (change of) liver, not elsewhere classified; R79.89 Other specified abnormal findings of blood chemistry; F17.210 Nicotine dependence, cigarettes, uncomplicated; Z28.311 Partially vaccinated for COVID-19; Z87.19 Personal history of other diseases of the digestive system; Z98.890 Other specified postprocedural states
CPT/HCPCS: 36415; 74177; 80053; 83690; 85025; 93005

== ENCOUNTER 2023-05-06 23:22 | Emergency (ER) | payer SELFPAY ==
[~2023-05-06] VITALS: Ht 175.3 cm; Wt 82.0 kg
[~2023-05-06 23:22] MED LIST changes: +MONT-47 PO; -MONT10TA21 PO; +OMEP20TA56 PO; +ONDA4TAB11 SL
[2023-05-07] MEDS ORDERED: dexAMETHasone INJ 4 MG/ML SDV IV ONE
[2023-05-07] MEDS ORDERED: FAMOTIDINE INJ 20MG/2ML VIAL IVP ONE
--- NOTE | 2023-05-07 00:01 | ED General ---
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 UNSURE OF CAUSE. Source of Information: Patient Exam Limitations: No Limitations (MARI ALBERTO) History of Present Illness Date Seen by Provider: May 06, 2023 Time Seen by Provider: 23:49 Initial Comments 52 yo M with PMH recurrent urticara of unknown origin and DM presents to the ED with c/o new onset urticara with associated SOA, throat tightness, and lightheadedness that started at 9:30p this evening. Pt states that he was laying in bed earlier this evening when his head started to itch. Pt states that itchiness and urticara then spread diffusely over body from head. Pt took 100mg of Benadryl at ~10pm and then took a cold shower but had no relief prompting him to come to the ED. Pt states that this happens occasionally, last time was ~1 year ago when he was seen in [facility] for similar symptoms. Pt states that he has been tested for multiple allergens but source of urticara has never been found. Pt denies having used an epipen prior to arrival but does note that he used his albuterol inhaler due to increased throat tightness and SOA. Pt states that inhaler did not provide relief. Pt takes singular and zyrtec daily, denies missing any doses recently. Pt denies having changed/used new lotions, detergents, or bath soap. Pt denies increased stress, exposure to heat or sun. 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 Denies fever, chills, cough, wheezing, and CP. Timing/Duration: 1-3 Hours Severity: Mild Associated Systoms: No Cough, No Fever/Chills; Rash, Shortness of Air (MARI ALBERTO) Allergies and Home Medications Allergies Coded Allergies: No Known Drug Allergies (Unverified , 07/12/22) Patient Home Medication List Home Medication List Reviewed: Yes (MARI ALBERTO) Cetirizine HCl (Zyrtec) 10 Mg Capsule, 10 MG PO DAILY Prescribed by: QAMAR RENDON on 06/26/15 1128 Epinephrine (Epipen 2-Yossi) 0.3 Mg/0.3 Ml Auto.injct, 0.3 MG IJ UD PRN for ALLERGIC REACTION, (Reported) Entered as Reported by: LUBNA RESTREPO on 06/25/15 1300 Epinephrine (Epipen 2-Yossi) 0.3 Mg/0.3 Ml Auto.injct, 0.3 MG IJ Q15M PRN for anaphylaxis Prescribed by: MARIA A CRUZ on 02/04/22 0257 Glipizide (Glipizide) 10 Mg Tablet, 10 MG PO BID, (Reported) Entered as Reported by: SONU ARGUETA on 06/15/17 0649 Metformin HCl (Metformin HCl) 1,000 Mg Tablet, 1,000 MG PO BID Prescribed by: QAMAR RENDON on 06/26/15 1128 Methylprednisolone (Methylprednisolone Dose Pack) 4 Mg Tab.ds.pk, 4 MG PO UD Prescribed by: MARIA A CRUZ on 02/04/22 025 Montelukast Sodium (Singulair) 10 Mg Tablet, 10 MG PO DAILY Prescribed by: QAMAR RENDON on 06/26/15 1128 Omeprazole (Omeprazole) 20 Mg Capsule.dr, 20 MG PO BID Prescribed by: COURTNEY RODRÍGUEZ on 06/15/17 1115 Omeprazole (Omeprazole) 20 Mg Tablet.dr, 20 MG PO DAILY Prescribed by: ELPIDIO MCFADDEN on 07/12/22 1609 Ondansetron (Ondansetron Odt) 4 Mg Tab.rapdis, 4 MG SL Q8H PRN for NAUSEA/VOMITING Prescribed by: ELPIDIO MCFADDEN on 07/12/22 1609 Prednisone (Prednisone) 10 Mg Tab.ds.pk, 10 MG PO DAILY Prescribed by: ELPIDIO MCFADDEN on 05/07/23 0024 Review of Systems Review of Systems Constitutional: no symptoms reported; No chills, No fever EENTM: no symptoms reported Respiratory: No cough; short of breath; No wheezing Cardiovascular: No chest pain, No palpitations Gastrointestinal: no symptoms reported Genitourinary: no symptoms reported Musculoskeletal: no symptoms reported Skin: pruritus, rash (diffuse urticara) Psychiatric/Neurological: No Symptoms Reported Hematologic/Lymphatic: No Symptoms Reported Immunological/Allergic: no symptoms reported (MARI ALBERTO) All Other Systems Reviewed Negative Unless Noted: Yes (MARI ALBERTO) Past Dxzolrg-Kxazei-Febrcc Hx Patient Social History Tobacco Use?: Yes Substance use?: No Alcohol Use?: No Pt feels they are or have been: No (MARI ALBERTO) Immunizations Up To Date First/Initial COVID19 Vaccinat: 2020 Second COVID19 Vaccination Rickie: 2020 Third COVID19 Vaccination Date: 2020 (MARI ALBERTO) Seasonal Allergies Seasonal Allergies: No (MARI ALBERTO) Past Medical History Surgery/Hospitalization HX: DM, GRADY MTN SPOTTED FEVER, DM, ARTHRITIS, KIDNEY STONES, DVT HERNIA, HEART CATH Surgeries: Yes (hernia repairs X 3) Abdominal Respiratory: No Currently Using CPAP: No Currently Using BIPAP: No Cardiac: Yes (ECHO, STRESS, CATHERIZATION IN 1989) Deep Vein Thrombosis, High Cholesterol, Hypertension Neurological: No Reproductive Disorders: No Genitourinary: Yes Kidney Stones Gastrointestinal: Yes (ING HERNIA REPAIR) Abdominal Hernia Musculoskeletal: No Endocrine: Yes (DM TYPE II) Diabetes, Non-Insulin dep HEENT: No Loss of Vision: Denies Hearing Impairment: Denies Cancer: No Psychosocial: No Integumentary: Yes (HX Hives, allergic reaction 06/25/15 unsure to what) Blood Disorders: Yes (REPORTS HEMATOMA TO LEFT LEG WHEN 14 IN AFTER HARD TACKLE IN FOOTBALL) Adverse Reaction/Blood Tranf: No (MARI ALBERTO) Family Medical History Cardiovascular disease 19 MOTHER Diabetes mellitus 19 MOTHER Hypertension 19 MOTHER CAD Under 55 Years Old, Diabetes, Hypertension (MARI ALBERTO) Physical Exam Vital Signs Vital Signs - First Documented 05/06/23 23:27 Temp 36.3 Pulse 112 Resp 20 B/P (MAP) 110/68 (82) Pulse Ox 94 O2 Delivery Room Air (ELPIDIO MCFADDEN MD) Vital Signs Capillary Refill : Less Than 3 Seconds (MARI ALBERTO) Height, Weight, BMI Height: 5'9.00" Weight: 200lbs. 9.0oz. [id number]; 26.00 BMI Method:Stated General Appearance: No Apparent Distress, WD/WN HEENT: PERRL/EOMI, Pharynx Normal, Moist Mucous Membranes Respiratory: Lungs Clear, Normal Breath Sounds, No Accessory Muscle Use, No Respiratory Distress Cardiovascular: No Murmur, Tachycardia Gastrointestinal: Non Tender, Soft Neurologic/Psychiatric: Alert, Oriented x3, Normal Mood/Affect Skin: Warm/Dry, Rash (diffuse urticara with excoriations on legs, healing abrasions on R forearm and hand) (MARI ALBERTO) Progress/Results/Core Measures Suspected Sepsis SIRS Temperature: Pulse: 112 Respiratory Rate: 20 Blood Pressure 110 /68 Mean: 82 (MARI ALBERTO) Results/Orders Lab Results Laboratory Tests Test 05/06/23 23:57 Range/Units Sodium Level 138 135-145 MMOL/L Potassium Level 3.6 3.6-5.0 MMOL/L Chloride Level 105 98-107 MMOL/L Carbon Dioxide Level 19 L 21-32 MMOL/L Anion Gap 14 5-14 MMOL/L Blood Urea Nitrogen 26 H 7-18 MG/DL Creatinine 1.54 H 0.60-1.30 MG/DL Estimat Glomerular Filtration Rate 53 BUN/Creatinine Ratio 17 Glucose Level 253 H 70-105 MG/DL Calcium Level 8.5 8.5-10.1 MG/DL (ELPIDIO MCFADDEN MD) My Orders Orders - ELPIDIO MCFADDEN MD Ed Iv/Invasive Line Start (05/06/23 23:53) Basic Metabolic Panel (05/06/23 23:53) Famotidine Injection (Famotidine Injec (05/07/23 00:00) Dexamethasone Injection (Decadron Injec (05/07/23 00:00) Ns Iv 1000 Ml (Ns Iv 1000 Ml) (05/07/23 00:45) (ELPIDIO MCFADDEN MD) Medications Given in ED Current Medications Medications Dose Ordered Sig/Clary Route Start Time Stop Time Status Last Admin Dose Admin Dexamethasone Sodium Phosphate 8 mg ONCE ONCE IV 05/07/23 00:00 05/07/23 00:01 DC 05/07/23 00:00 8 MG Famotidine 20 mg ONCE ONCE IVP 05/07/23 00:00 05/07/23 00:01 DC 05/07/23 00:00 20 MG (ELPIDIO MCFADDEN MD) Vital Signs/I&O 05/06/23 23:27 Temp 36.3 Pulse 112 Resp 20 B/P (MAP) 110/68 (82) Pulse Ox 94 O2 Delivery Room Air (ELPIDIO MCFADDEN MD) Vital Signs/I&O Capillary Refill : Less Than 3 Seconds (MARI ALBERTO) Blood Pressure Mean: 82 Progress Note #1: Time: 00:16 Progress Note Patient seen and evaluated by me. I have reviewed the medical student's documentation and agree. Patient is a WDWN male in moderate distress due to hives/urticaria and pruritis. He is slightly tachycardic, lungs are clear without wheezing or resp distress. No intraoral lesions/swelling. His abdomen is soft. He is covered hear to toe in an urticarial rash. Affect all surfaces - macular erythematous rash - coalescing in patches. Some raised areas. Excoriations to extremities. Mentating appropriately. BMP was ordered to assess electolytes, renal function and blood sugar. Patient treated in the ED with pepcid 20mg IV and decadron 8mg IV. He had taken 100mg benadryl just prior to arraival around 10pm. His BMP is reviewed and interpreted by me. Normal electrolytes. Progress Note #2: Time: 01:20 Progress Note Patient feels MUCH better. Hives almost all resolved. No longer SOB/throat dis comfort. SLeepy and ready for discharge. (ELPIDIO MCFADDEN MD) Departure Impression Primary Impression: Urticaria Disposition: 01 HOME, SELF-CARE Departure-Patient Inst. Referrals: [facility] (PCP/Family) Primary Care Physician Add. Discharge Instructions: Continue the steroids over the next several days - as a taper per the prescription. Continue Benadryl daily. 1-2 pills every 6 hours as needed for itching. You should also take over the counter pepcid, 20mg twice daily while you are on the prednisone. The pepcid adds to the beneficial effect of the benadryl. Cool/tepid showers will help the itching. A good lotion such as Cerave' will help keep your skin from drying out. Drink lots of water to stay well hydrated while taking the benadryl. You need to check your sugars at least 2-3 times a day and watch your sugar intake while on the prednisone, because the prednisone will cause your sugars to climb higher than normal. If you have any worsening symptoms, shortness of breath, mouth/lips or tongue swelling, please return to the Emergency Department for re-evaluation. Scripts Prednisone (Prednisone) 10 Mg Tab.ds.pk 10 MG PO DAILY, #21 EA Take 6 tabs(60mg)daily,decrease by 1 tab(10MG)daily. Prov: ELPIDIO MCFADDEN MD 05/07/23 Work/School Note: Work Release Form Date Seen in the Emergency Department: May 07, 2023 Return to Work: May 08, 2023 Verification and Attestation of Medical Student E/M Service A medical student performed and documented this service in my presence. I revi ewed and verified all information documented by the medical student and made modifications to such information, when appropriate. I personally performed the physical exam and medical decision making. Elpidio Mcfadden, May 07, 2023,00:16 (ELPIDIO MCFADDEN MD) Copy Copies To 1: NINOSKA CARDENAS TAYLOR May 07, 2023 00:01 ELPIDIO MCFADDEN MD May 07, 2023 00:23
[2023-05-07 00:19] LABS: POTASSIUM 3.6 MMOL/L (3.6-5.0)
[2023-05-07 00:20] LABS: CALCIUM 8.5 MG/DL (8.5-10.1)
[2023-05-07 00:24] LABS: CREATININE SERUM 1.54 MG/DL (0.60-1.30)
[2023-05-07] MEDS ORDERED: PRED10TA22 PO (00:24)
[2023-05-07] MEDS ORDERED: NS IV 1000 ML 1,000 ML IV STA (00:45)
[2023-05-07 01:26] VITALS: BP 149/82
== END 2023-05-07 01:29 | disposition home or self-care (01) ==
LOC: EDUNIT# 23:22 → ER 23:24
DX: L50.9 Urticaria, unspecified (principal); R00.0 Tachycardia, unspecified; Z79.899 Other long term (current) drug therapy
CPT/HCPCS: 36415; 80048